=== PATIENT | female | born 1975 | race Caucasian/White ===

== ENCOUNTER 2018-08-30 08:14 | Inpatient (IN) | payer OTHER ==
[~2018-08-30] VITALS: Ht 157.5 cm; Wt 103.6 kg
[2018-08-30 08:22] VITALS: Ht 157.5 cm; Wt 103.6 kg
[2018-08-30 08:59] LABS: CARBON DIOXIDE 23.1 mmol/L (21-32); CHLORIDE SERUM 104 mmol/L (98-107); CREATININE SERUM 0.7 mg/dL (0.6-1.0); GFR1 > 60 mL/min; GLUCOSE SERUM 113 mg/dL (74-106); POTASSIUM SERUM 3.7 mmol/L (3.5-5.1); SODIUM SERUM 137 mmol/L (136-145)
[2018-08-30 10:59] LABS: BASOPHIL % 0.3 % (0-2); PLATELET COUNT 295 x10^3mcL (130-400); RED CELL DISTRIBUTION WIDTH 15.6 % (11.5-14.5)
[2018-08-30 11:53] LABS: T3 TOTAL 1.36 ng/mL
[2018-08-30 12:05] VITALS: BP 113/64
[2018-08-30 12:24] LABS: CHOLESTEROL/HDL RATIO 3.3; PHOSPHOROUS 2.8 mg/dL (2.5-4.9)
[2018-08-30 12:31] LABS: UA SPECIFIC GRAVITY 1.025 (1.005-1.035); microscopic required? YES; urine erythrocyte NEGATIVE (NEGATIVE)
[2018-08-30 12:32] LABS: FREE T4 0.91 ng/dL (0.76-1.46); FREE THYROXINE INDEX 2.2 ug/dL (1.4-4.5); T4(THYROXINE) 7.3 ug/dL (4.7-13.3)
[2018-08-30 12:37] LABS: AMPHETAMINE QUAL UR NONE DETECTED (See below)
[2018-08-30 15:59] VITALS: BP 113/64
[2018-08-30 16:02] VITALS: BP 107/56
[2018-08-30 21:04] VITALS: BP 119/48
[2018-08-31 06:05] LABS: BASOPHIL % 0.5 % (0-2); RED CELL DISTRIBUTION WIDTH 14.4 % (11.5-14.5)
[2018-08-31 06:07] LABS: CALCIUM 8.6 mg/dL (8.5-10.1); CARBON DIOXIDE 24.9 mmol/L (21-32); CHLORIDE SERUM 106 mmol/L (98-107); CREATININE SERUM 0.7 mg/dL (0.6-1.0); GFR1 > 60 mL/min; GLUCOSE SERUM 105 mg/dL (74-106); POTASSIUM SERUM 3.8 mmol/L (3.5-5.1); SODIUM SERUM 141 mmol/L (136-145)
[2018-08-31 06:18] VITALS: BP 109/53
[2018-08-31 07:25] LABS: PLATELET COUNT 294 x10^3mcL (130-400)
[2018-08-31 09:07] VITALS: BP 99/52
[2018-08-31 12:16] VITALS: BP 123/44
[2018-08-31 17:22] VITALS: BP 121/63
[2018-08-31 19:15] VITALS: BP 107/60
[2018-09-01 06:09] VITALS: BP 103/49
[2018-09-01 06:23] LABS: BASOPHIL % 0.3 % (0-2); PLATELET COUNT 288 x10^3mcL (130-400); RED CELL DISTRIBUTION WIDTH 14.4 % (11.5-14.5)
[2018-09-01 06:29] LABS: CALCIUM 8.9 mg/dL (8.5-10.1); CARBON DIOXIDE 25.6 mmol/L (21-32); CHLORIDE SERUM 106 mmol/L (98-107); CREATININE SERUM 0.7 mg/dL (0.6-1.0); GFR1 > 60 mL/min; GLUCOSE SERUM 101 mg/dL (74-106); MAGNESIUM 2.1 mg/dL (1.8-2.4); PHOSPHOROUS 3.8 mg/dL (2.5-4.9); POTASSIUM SERUM 4.1 mmol/L (3.5-5.1); SODIUM SERUM 140 mmol/L (136-145)
[2018-09-01 06:45] VITALS: BP 106/64
[2018-09-01 09:05] VITALS: BP 108/64
[2018-09-01 12:05] VITALS: BP 108/52
[2018-09-01 17:57] VITALS: BP 123/62
[2018-09-01 21:02] VITALS: BP 109/55
[2018-09-02 05:43] VITALS: BP 108/61
[2018-09-02 06:47] LABS: BASOPHIL % 0.5 % (0-2); PLATELET COUNT 277 x10^3mcL (130-400); RED CELL DISTRIBUTION WIDTH 14.4 % (11.5-14.5)
[2018-09-02 06:58] LABS: CALCIUM 8.9 mg/dL (8.5-10.1); CARBON DIOXIDE 20.6 mmol/L (21-32); CHLORIDE SERUM 102 mmol/L (98-107); CREATININE SERUM 0.7 mg/dL (0.6-1.0); GFR1 > 60 mL/min; GLUCOSE SERUM 101 mg/dL (74-106); MAGNESIUM 2.1 mg/dL (1.8-2.4); PHOSPHOROUS 3.8 mg/dL (2.5-4.9); POTASSIUM SERUM 3.7 mmol/L (3.5-5.1); SODIUM SERUM 132 mmol/L (136-145); rbc morphology (normal/abnorm) ABNORMAL (NORMAL)
[2018-09-02 09:12] VITALS: BP 121/51
[2018-09-02] MEDS ORDERED: IMITREX50 MG PO (10:44)
[2018-09-02] MEDS ORDERED: NORCO1 TA2 PO (10:46)
[2018-09-02 10:49] VITALS: BP 121/51
[2018-09-02 12:55] VITALS: BP 119/59
== END 2018-09-02 14:12 | disposition home or self-care (01) | DRG 54 ==
LOC: ED 08:14 → DU 10:51
PROVIDERS: Emergency Medicine; Internal Medicine
DX: G43.909 Migraine, unspecified, not intractable, without status migrainosus (principal); E66.01 Morbid (severe) obesity due to excess calories; N39.0 Urinary tract infection, site not specified; M94.0 Chondrocostal junction syndrome [Tietze]; E11.9 Type 2 diabetes mellitus without complications; H53.149 Visual discomfort, unspecified; B96.4 Proteus (mirabilis) (morganii) as the cause of diseases classified elsewhere; Z68.41 Body mass index [BMI] 40.0-44.9, adult; Z88.6 Allergy status to analgesic agent; Z83.3 Family history of diabetes mellitus
CPT/HCPCS: 82962; 83880; 84439; 85378; C9113; J0696; J2060; J3010; J7030; Q0092; Q9967

== ENCOUNTER 2019-07-10 13:48 | Emergency (ER) | payer OTHER ==
[~2019-07-10] VITALS: Ht 157.5 cm; Wt 108.0 kg
[~2019-07-10 13:48] MED LIST: IMITREX50 MG PO; NORCO1 TA2 PO
[2019-07-10 14:01] VITALS: Ht 157.5 cm; Wt 108.0 kg
[2019-07-10 14:25] LABS: BASOPHIL % 0.4 % (0-2); PLATELET COUNT 320 x10^3mcL (130-400)
[2019-07-10 14:26] LABS: RED CELL DISTRIBUTION WIDTH 15.9 % (11.5-14.5)
[2019-07-10 14:43] LABS: CALCIUM 9.6 mg/dL (8.5-10.1); CARBON DIOXIDE 26.1 mmol/L (21-32); CHLORIDE SERUM 101 mmol/L (98-107); CREATININE SERUM 0.8 mg/dL (0.6-1.0); GFR1 > 60 mL/min; GLUCOSE SERUM 91 mg/dL (74-106); POTASSIUM SERUM 3.4 mmol/L (3.5-5.1); SODIUM SERUM 137 mmol/L (136-145)
[2019-07-10 14:47] LABS: ALBUMIN 3.4 g/dL (3.4-5.0); ALKALINE PHOSPHATASE 78 U/L (46-116); ALT/SGPT 36 U/L (14-59); AST/SGOT 21 U/L (15-37); BILIRUBIN TOTAL 0.3 mg/dL (0.20-1.00); TOTAL PROTEIN, SERUM 7.9 g/dL (6.4-8.2)
[2019-07-10 16:31] VITALS: BP 137/79
== END 2019-07-10 16:31 | disposition home or self-care (01) ==
LOC: ED 13:48
DX: R07.89 Other chest pain (principal); R51 Headache; R05 Cough
CPT/HCPCS: 36415; Q0092

== ENCOUNTER 2019-09-16 17:56 | Emergency (ER) | payer OTHER ==
[~2019-09-16] VITALS: Ht 162.6 cm; Wt 106.6 kg
[2019-09-16 18:02] VITALS: Ht 162.6 cm; Wt 106.6 kg
[2019-09-16 19:50] VITALS: BP 109/65
== END 2019-09-16 19:50 | disposition home or self-care (01) ==
LOC: ED 17:56
DX: G43.909 Migraine, unspecified, not intractable, without status migrainosus (principal); S20.469A Insect bite (nonvenomous) of unspecified back wall of thorax, initial encounter; L08.9 Local infection of the skin and subcutaneous tissue, unspecified; Z88.6 Allergy status to analgesic agent; W57.XXXA Bitten or stung by nonvenomous insect and other nonvenomous arthropods, initial encounter; Y93.89 Activity, other specified; Y92.89 Other specified places as the place of occurrence of the external cause; Y99.8 Other external cause status
CPT/HCPCS: Q0163